=== PATIENT | male | born 1940 | race Caucasian/White ===

== ENCOUNTER 2017-05-20 12:47 | Emergency (ER) | payer OTHER ==
[2017-05-20] MEDS ORDERED: NS 1,000 ML IV ONE ×2 (13:18→14:27)
[2017-05-20] MEDS ORDERED: ONDANSETRON 4 MG/2 ML VIAL IVP ONE (13:19)
--- NOTE | 2017-05-20 13:24 | EDPHY ---
H & P Stated Complaint: cough and congestion for 5 days Time Seen by Provider: 05/20/17 12:54 HPI/ROS: This patient complains of a one-week history of coughing with worsening symptoms over the past 48 hr. He explains that he has had coryza and a cough with increasing yellow sputum over that period of time and over the past 2 days developed subjective fevers as well and increasing fatigue. He also describes lightheadedness today while in his feet and he had dry heaves this morning- several episodes. He did not eat breakfast due to ongoing nausea and has not had lunch either. Due to worsening symptoms, he asked his to drive him in by private vehicle for evaluation. ROS: Constitutional: Positive fatigue and subjective fevers. No chills. HEENT: No facial pain. He has left ear tinnitus since the onset of symptoms. No ear pain however. He complains of a mild sore throat. No sinus pain. Pulmonary: Denies shortness of breath. No pleuritic pain. No hemoptysis. Cardiovascular: No chest pain. No heart palpitations. No leg swelling. Positive lightheadedness. GI: Dry heaves. No abdominal pain. Slightly loose stool over the past few days. No quynh diarrhea. No bloody stools. : No flank pain, dysuria, testicle swelling or pain. No hematuria. Integumentary: No skin rash except minimal to his left foot the attributes to wearing tennis shoes without socks. Endocrine: No complaints Psychiatric: No complaints Complete review of symptoms is otherwise negative. Source: Patient Exam Limitations: No limitations - Medical/Surgical History PMH: Hypertension Gout Benign prostatic hypertrophy Soft tissue of neck complicated by sepsis-admitted to a [facility] in 2011 Hx Asthma: No Hx Chronic Respiratory Disease: No Hx Diabetes: No Hx Cardiac Disease: No Hx Renal Disease: No Hx Cirrhosis: No Hx Alcoholism: No Hx HIV/AIDS: No Hx Splenectomy or Spleen Trauma: No Other PMH: GOUT, SEASONAL ALLERGIES, HYPERTENSION, urinary urgency - Family History Significant Family History: No pertinent family hx - Social History Smoking Status: Never smoked Alcohol Use: Other (He drinks 2-3 glasses of wine a day.) Drug Use: None Additional Social History: He lives with his . 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 General Appearance: Alert, no distress. Eyes: Pupils equal and round no pallor or injection. ENT, Mouth: Mucous membranes moist. Oropharynx: No significant erythema. No dysphonia. He has no sinus tenderness to percussion. Ears: Clear external canals and TMs bilaterally. Respiratory: There are no retractions, lungs are clear to auscultation. He does have a intermittent cough appreciate no rales or rhonchi. Cardiovascular: Tachycardic with no murmur gallop or rub. Gastrointestinal: Abdomen is soft and nontender, no masses, bowel sounds normal. Back: No CVA tenderness : No testicular tenderness Neurological: GCS 15 with no focal deficits. Skin: Warm and dry, patient has scaly erythematous rash to feet left more than right consistent with tinea pedis. Otherwise no other skin rashes. No pallor or diaphoresis. Musculoskeletal: Neck is supple nontender. Extremities are symmetrical, full range of motion. Psychiatric: Mood and affect are normal DIFFERENTIAL DIAGNOSIS: After history and physical exam differential diagnosis was considered for influenza a, other viral syndrome, pneumonia, bronchitis, dehydration, UTI, Constitutional: Initial Vital Signs Temperature (C) 37.7 C 05/20/17 12:54 Heart Rate 102 H 05/20/17 12:54 Respiratory Rate 18 05/20/17 12:54 Blood Pressure 148/79 H 05/20/17 12:54 O2 Sat (%) 92 05/20/17 12:54 O2 Delivery Mode Nasal Cannula O2 (L/minute) 2 Allergies/Adverse Reactions: No Known Allergies Allergy (Verified 05/20/17 12:53) Home Medications: Medication Instructions Recorded Exforge 10-320 mg 04/12/13 Singulair 04/12/13 Medical Decision Making - Diagnostics EKG Interpretation: 12 lead EKG performed at 2:05 p.m. reveals sinus rhythm at 91 Intervals: Normal throughout [place]: P of 63, QRS of -31, T 56 ST segments: Normal throughout Overall assessment: sinus rhythm with left axis deviation Imaging Results: Two view chest x-ray: Left lower lobe infiltrate by my interpretation consistent with pneumonia Imaging: I viewed and interpreted images myself ED Course/Re-evaluation: IV, normal saline bolus Studies: Flu swab is negative, CBC is notable for leukocytosis with white count 15,000 with a left shift. Venous lactate is elevated 2.5. Chemistries are normal with exception of a bicarb of 21 and a glucose of 106. LFTs were checked due to social history of daily alcohol and LFTs are normal. This patient qualifies as severe sepsis by presence of pulse greater than 90, leukocytosis with pneumonia source and presence of lactic acidosis. He is treated with IV ceftriaxone 1 g IV and Zithromax 500 mg p.o. He is responding well to initial fluid bolus with resolution of his tachycardia- heart rate in the 90s. Blood pressure is stable at 124/77 at 2:00 p.m.. We did start him on nasal cannula O2 for borderline hypoxia and a 2 .5 L nasal cannula he sats 94%. The patient requests admission to [facility] due to proximity to he and his home and prior admission there. I spoke via [employer]-with Dr. Mccormack - hospitalist at [facility] who accepts the patient for transfer 1st L saline bolus completed at 2:25 p.m.-2nd L saline started. The patient remains hemodynamically stable. Patient still does not have the urge to urinate Total continuous bedside critical care time: 15 min EMS arrived to transfer patient to a [facility] at the time of transfer the patient remains hemodynamically stable and alert. - Data Points Laboratory Results: Laboratory Results 05/20/17 13:25 05/20/17 13:25 Medications Given: Discontinued Medications Acetaminophen (Tylenol) 1,000 mg PO EDNOW ONE Stop: 05/20/17 14:06 Last Admin: 05/20/17 14:18 Dose: 1,000 mg Azithromycin (Zithromax) 500 mg PO EDNOW ONE PRN Reason: Protocol Stop: 05/20/17 13:51 Last Admin: 05/20/17 14:02 Dose: 500 mg Sodium Chloride (Ns) 1,000 mls @ 0 mls/hr IV ONCE ONE; Wide Open PRN Reason: Protocol Stop: 05/20/17 13:19 Last Admin: 05/20/17 13:26 Dose: 1,000 mls Ceftriaxone Sodium 1 gm/ (Sterile Water) 10 mls @ 150 mls/hr IV EDNOW ONE PRN Reason: Protocol Stop: 05/20/17 13:53 Last Admin: 05/20/17 14:01 Dose: 10 mls Sodium Chloride (Ns) 1,000 mls @ 0 mls/hr IV EDNOW ONE; Wide Open PRN Reason: Protocol Stop: 05/20/17 14:28 Last Admin: 05/20/17 14:31 Dose: 1,000 mls Ondansetron HCl (Zofran) 4 mg IVP EDNOW ONE Stop: 05/20/17 13:20 Last Admin: 05/20/17 13:27 Dose: 4 mg Departure - Departure Disposition: [facility] Clinical Impression: Severe sepsis Community acquired pneumonia Qualifiers: Laterality: left Lung location: lower lobe of lung Qualified Code(s): J18.1 - Lobar pneumonia, unspecified organism Condition: Fair Referrals: Neil Cantu MD [Primary Care Provider] - As per Instructions
[2017-05-20 13:33] LABS: PLATELET COUNT 173 10^3/uL (150-400)
[2017-05-20] MEDS ORDERED: cefTRIAXone 1 GM in STERILE WATER INJ 10 ML IV ONE (13:50)
[2017-05-20] MEDS ORDERED: AZITHROMYCIN 250 MG TAB PO ONE (13:50)
[2017-05-20] MEDS ORDERED: cefTRIAXone 1 GM VIAL ONE (13:58)
[2017-05-20] MEDS ORDERED: ACETAMINOPHEN 500 MG TAB PO ONE (14:05)
--- NOTE | 2017-05-20 14:10 | CPEKG ---
Heart Rate: 91 RR Interval: 659 P-R Interval: 156 QRSD Interval: 80 QT Interval: 360 QTC Interval: 443 P Four States: 63 QRS Four States: -31 T Wave Four States: 56 EKG Severity - OTHERWISE NORMAL ECG - EKG Impression: SINUS RHYTHM EKG Impression: LEFT AXIS DEVIATION Electronically Signed By: Alberto Palencia 25-May-2017 09:37:12
[2017-05-20] MEDS ORDERED: LET GEL TOPICAL 1 EA SYR TP ONE (14:17)
[2017-05-20 14:54] VITALS: TEMP 99.1
[2017-05-20 15:20] VITALS: BP 133/62; PULSE 88; RESP 16; O2SAT 95
== END 2017-05-20 15:20 | disposition short-term general hospital (02) ==
LOC: CED 12:47
DX: A41.9 Sepsis, unspecified organism (principal); R65.20 Severe sepsis without septic shock; J18.9 Pneumonia, unspecified organism; I10 Essential (primary) hypertension; E86.9 Volume depletion, unspecified
CPT/HCPCS: 71046; 93005; 96361; 96374; 96375; 99285; J0696; J2405; 80048-PO; 80076-PO; 83605-PO; 85025-PO; 87400-PO

== ENCOUNTER → 2017-07-18 | Outpatient (CLI) | payer OTHER | LOC: BMCIMAGING 16:31 | PROVIDERS: ATTEND Internal Medicine | DX: Z09 Encounter for follow-up examination after completed treatment for conditions other than malignant neoplasm (principal); Z87.09 Personal history of other diseases of the respiratory system ==

== ENCOUNTER → 2017-09-10 | Outpatient (CLI) | payer OTHER | LOC: FIMAGING 11:45 | PROVIDERS: ATTEND Internal Medicine | DX: Z03.89 Encounter for observation for other suspected diseases and conditions ruled out (principal) ==